=== PATIENT | male | born 1950 | race Caucasian/White ===

== ENCOUNTER 2023-07-07 06:35 | Observation (INO) ==
--- NOTE | 2023-06-02 09:57 | PAT Medication Instructions ---
Medication Instructions Date of Service June 02, 2023 Home Medications bimatoprost 0.01 % eye drops (Lumigan) 1 drp ophthalmic (eye) HS lisinopril 10 mg tablet 15 mg PO QAM simvastatin 10 mg tablet 10 mg PO HS cholecalciferol (vitamin D3) 50 mcg (2,000 unit) tablet (Vitamin D3) 50 mcg PO DAILY multivitamin with minerals-folic acid 12 mcg chewable tablet (Centrum Adults) 1 tab PO QAM naproxen sodium 220 mg tablet (Aleve) 220 mg PO BID PRN Pain timolol maleate 0.5 % eye drops 1 drp ophthalmic (eye) QAM ASK your surgeon for instructions naproxen sodium 220 mg tablet (Aleve) 220 mg PO BID PRN Pain DO NOT take the morning of surgery lisinopril 10 mg tablet 15 mg PO QAM cholecalciferol (vitamin D3) 50 mcg (2,000 unit) tablet (Vitamin D3) 50 mcg PO DAILY multivitamin with minerals-folic acid 12 mcg chewable tablet (Centrum Adults) 1 tab PO QAM Take morning of surgery With a small sip of water, OTHERWISE NOTHING TO EAT OR DRINK AFTER MIDNIGHT: timolol maleate 0.5 % eye drops 1 drp ophthalmic (eye) QAM Take evening before surgery bimatoprost 0.01 % eye drops (Lumigan) 1 drp ophthalmic (eye) HS simvastatin 10 mg tablet 10 mg PO HS Other Notes If you have any questions please call us at [phone] or [phone] or [phone] or [phone]
--- NOTE | 2023-06-09 13:47 | Anesthesiology Consultation ---
Date of Service June 09, 2023 Assessment & Plan (1) Encounter for pre-operative examination: Chart Review Chart Review: Acceptable Risk for Surgery (pending PCP clearance ) and Patient seen in Pre Admission Testing - Awaiting PCP clearance done 06/08/23 ([facility]- Celia Blanca PA-C) (please fax preop testing (PCP awaiting testing prior to final clearance) = fax number [phone] or [phone])) - Patient is NOT an OPJ candidate due to nature of procedure Per PAT appt on 06/09/23, no recent illness/disease exposures, illness related symptoms, or recent illness/disease positive tests. Will leave to surgeon's discretion if preop Covid testing needed Right Total Shoulder reverse arthroplasty 02/13/22= Done under [facility] with Grade 1 view with MAC #4. ETT #8.0. Teaching & Discussion Pre-Anesthesia Teaching/Discussion Notes: Instructed NPO after midnight before surgery,except medications with 15 cc of water. Medication instructions provided according to the [facility] guidelines. History Surgery Operation Date: 07/07/23 09:10 Proposed Procedures p Bilateral Total Knee Arthroplasty - Huseyin Paez DO Height/Weight Height: 5 ft 6 in Weight: 73.7 kg Allergies Allergy/AdvReac Type Severity Reaction Status Date / Time No Known Allergies Allergy Verified 06/01/23 14:27 Medications Home Medications Medication Instructions Recorded Confirmed Last Taken bimatoprost 0.01 % eye drops 1 drp ophthalmic (eye) HS 01/21/22 06/01/23 02/12/22 19:00 ([facility]) lisinopril 10 mg tablet 15 mg PO QAM 01/21/22 06/01/23 02/12/22 06:00 simvastatin 10 mg tablet 10 mg PO HS 01/21/22 06/01/23 02/12/22 20:00 cholecalciferol (vitamin D3) 50 50 mcg PO DAILY 06/01/23 06/01/23 Unknown mcg (2,000 unit) tablet (Vitamin D3) multivitamin with minerals-folic 1 tab PO QAM 06/01/23 06/01/23 Unknown acid 12 mcg chewable tablet (Centrum Adults) naproxen sodium 220 mg tablet 220 mg PO BID PRN Pain 06/01/23 06/01/23 Unknown (Aleve) timolol maleate 0.5 % eye drops 1 drp ophthalmic (eye) QAM 06/01/23 06/01/23 Unknown Past Medical History Medical History (Updated 06/10/23 @ 09:28 by Vanesa King PA-C) Ocular hypertension Follows routinely with eye doctor History of COVID-19 07/2022- home test -mild symptoms, chills; resolved Impaired fasting glucose hx A1c 6.8% > 1 yr ago, with dietary changes reduced to below 6 by patient Hgb A1C 6.1 at [facility] appt on 06/09/23 Hyperlipidemia Hypertension controlled, stable per pt Exercise / Class Metabolic Activity II 4-5 Yardwork/Stairs/Walk up hill (one flight of stairs - no chest pain or SOB- walks 3 miles daily ) Past Family History Family History Other No pertinent family history Past Surgical History Surgical History History of reverse total replacement of right shoulder joint Hx of bilateral cataract extraction 06/2014 right eye --- 07/2014 left eye Hx of colonoscopy History of arthroscopy of left shoulder Hx of amputation index finger - right hand Hx of lumbar discectomy 1976 History of bowel resection [facility] 2016 d/t cancerous polyp - stage 0 - no current issue Past Anesthesia History No Hx of Anesthesia Complications (with exception to remote history of urinary retention in 1970s with lumbar surgery- no issues with subsequent surgeries ) and No Family Hx of Anesthesia Complications History of PONV No Hx of PONV and Hx of Motion Sickness (mild in the past ) Social History Smoking Status: Never smoker Do You Dip or Chew Tobacco: No Hx Alcohol Use: Yes Alcohol type: wine alcohol intake frequency: holidays/special occasions only Hx Substance Use: No substance use type: does not use Review of Systems - Hx of snoring - no hx of sleep study Patient denies chest pain, shortness of breath, dyspnea on exertion, reflux, cough, wheezing, palpitations. No hx of seizures, stroke, NC. No hx of blood clots or blood transfusions Physical Exam Vital Signs VITALS BP 128/74 P 73 TEMP 97.8 SP02 98% RESP 16 Constitutional no acute distress ENMT Mouth: no TMJ clicking Thyromental Distance: > or= 3.5 Finger Breadths (3.5) Mallampati Class: I Missing molar Caps to bottom front teeth and side teeth/molars Neck + limited neck extension (mild) Respiratory normal respiratory effort; no respiratory distress Auscultation: lungs clear to auscultation bilaterally; no wheezes Cardiovascular Rate/Rhythm: regular rate and regular rhythm Heart Sounds: no murmur Vessels: no carotid bruit Musculoskeletal Spine: no pain with cervical ROM Extremities: extremities normal to inspection Psychiatric Orientation: alert Lab Results Anesthesia Preop Results Results Anesthesia Widget: WBC 6.83 K/ul (4.8-10.8) 06/09/23 Hgb 13.3 g/dl (14.0-18.0) L 06/09/23 Hct 40.2 % (42.0-52.0) L 06/09/23 Plt 221 K/uL (130-400) 06/09/23 Na 138 mmol/L (136-145) 06/09/23 K 4.6 mmol/L (3.5-5.1) 06/09/23 Cl 104 mmol/L (98-107) 06/09/23 CO2 28 mmol/L (21-32) 06/09/23 BUN 33 mg/dl (6-23) H 06/09/23 Creat 1.32 mg/dl (0.6-1.4) 06/09/23 Glucose Level 99 mg/dl (70-99(Fasting)) 06/09/23 PT 11.0 Seconds (9.0-12.0) 06/09/23 PTT 25.9 Seconds (21.0-31.0) 06/09/23 INR 1.0 (0.9-1.1) 06/09/23 HA1c 6.1 % (4.5-5.6) H 06/09/23 Urine Color Yellow 06/09/23 Urine Appearance Cloudy (Clear) A 06/09/23 Urine pH 7.5 (4.5-7.5) 06/09/23 Urine Specific [place] 1.018 (1.000-1.030) 06/09/23 Urine Protein Negative (Negative) 06/09/23 Urine Glucose (UA) Negative (Negative) 06/09/23 Urine Ketones Negative (Negative) 06/09/23 Urine Blood Negative (Negative) 06/09/23 Urine Nitrite Negative (Negative) 06/09/23 Urine Bilirubin Negative (Negative) 06/09/23 Urine Urobilinogen Negative (Negative) 06/09/23 Urine Leukocyte Esterase Negative (Negative) 06/09/23 Urine WBC (Auto) 0 /hpf (0-5) 06/09/23 Urine RBC (Auto) 0-4 /hpf (0-4) 06/09/23 Urine Hyaline Casts (Auto) 1-5 /lpf (0-5) 06/09/23 Urine Epithelial Cells (Auto) 5-10 /lpf (0-5) H 06/09/23 Urine Bacteria (Auto) Negative (Negative) 06/09/23 Blood Type O Positive 06/09/23 Antibody Screen NEGATIVE 06/09/23 Testing Electrocardiogram Date: 06/09/23 Findings: + NSR @ (65bpm ) Normal EKG per cardio Chest X-Ray Date: 06/09/23 Findings: + NAD FINDINGS: Right shoulder arthroplasty is incidentally noted. Lung volumes are normal. Lungs are clear. There is no pneumothorax or pleural effusion. Cardiac size is normal. Mediastinal contours are normal. There is no evidence for pulmonary edema.
--- NOTE | 2023-06-10 11:36 | History & Physical Report ---
Date of Service June 10, 2023 date of surgery: 07/07/23 Procedure: Bilateral Total Knee Arthroplasty Surgeon: Huseyin Paez, DO Assessment & Plan (1) Degenerative arthritis of knee, bilateral: Plan: Risk and benefits of procedure were discussed, he wished to proceed with bilateral total knee replacements. We will plan an overnight stay with discharge home with home health physical therapy. We will place him on Eliquis for postoperative DVT prophylaxis x1 month. Follow-up in the office 2 weeks after surgery or sooner if he is having issues, otherwise has no other questions or concerns The risks and benefits have been discussed including, but not limited to, risk of infection, nerve injury, stiffness, loss of motion, failure to improve, etc. Reasonable outcomes and options of treatment were discussed. An explanation of appropriate alternatives to the procedure that may be advantageous were discussed and their risks and benefits, as well as the risks and benefits of not proceeding with treatment. I offered to answer any additional inquiries concerning the treatment involved. All the patient's questions were answered. The patient is agreeable, understanding of the treatment plan and alternatives, and wishes to proceed with the treatment plan. History of Present Illness Chief Complaint: bilateral knee pain Primary Care Provider: Huseyin Hugo Manav is a pleasant 73-year-old male who presented for preop evaluation prior to bilateral total knee replacements. His longstanding history of bilateral knee pain, equal in severity, denies any injuries or trauma. He is undergone previous injections including viscosupplementation with minimal relief, he has also tried oral anti-inflammatories and Tylenol. Rates his current pain as a 6 out of 10. X-rays were reviewed which show advanced generative changes to both of his knees, and after discussing further care he wishes to proceed with surgical intervention Allergies Allergy/AdvReac Type Severity Reaction Status Date / Time No Known Allergies Allergy Verified 06/01/23 14:27 Home Medications Medication Instructions Recorded Confirmed Type bimatoprost 0.01 % eye drops 1 drp ophthalmic (eye) HS 01/21/22 06/01/23 History (Warren) lisinopril 10 mg tablet 15 mg PO QAM 01/21/22 06/01/23 History simvastatin 10 mg tablet 10 mg PO HS 01/21/22 06/01/23 History cholecalciferol (vitamin D3) 50 50 mcg PO DAILY 06/01/23 06/01/23 History mcg (2,000 unit) tablet (Vitamin D3) multivitamin with minerals-folic 1 tab PO QAM 06/01/23 06/01/23 History acid 12 mcg chewable tablet (Centrum Adults) naproxen sodium 220 mg tablet 220 mg PO BID PRN Pain 06/01/23 06/01/23 History (Aleve) timolol maleate 0.5 % eye drops 1 drp ophthalmic (eye) QAM 06/01/23 06/01/23 History Past Med/Surg History Medical History Ocular hypertension Follows routinely with eye doctor History of COVID-19 07/2022- home test -mild symptoms, chills; resolved Impaired fasting glucose hx A1c 6.8% > 1 yr ago, with dietary changes reduced to below 6 by patient Hgb A1C 6.1 at PAT appt on 06/09/23 Hyperlipidemia Hypertension controlled, stable per pt Surgical History History of reverse total replacement of right shoulder joint Hx of bilateral cataract extraction 06/2014 right eye --- 07/2014 left eye Hx of colonoscopy History of arthroscopy of left shoulder Hx of amputation index finger - right hand Hx of lumbar discectomy 1975 History of bowel resection [facility] 2016 d/t cancerous polyp - stage 0 - no current issue Family History Other No pertinent family history Social History Smoking Status: Never smoker Second Hand Exposure: No; Do You Dip or Chew Tobacco: No; Hx Alcohol Use: Yes Alcohol type: wine Hx Substance Use: No Preferred Language: Vietnamese Communication Ability: Effective Basket Person Required: No Beliefs That Will Affect Care: None Current Living Situation: Spouse Feels Safe at Home: Yes Assistive Devices: Glasses Review of Systems Review of Systems: All systems reviewed & are unremarkable except as noted in HPI & below Constitutional: no fever, no chills and no sweats Respiratory: no cough and no dyspnea Cardiovascular: no chest pain, no dyspnea and no orthopnea Gastrointestinal: no abdominal pain, no nausea and no vomiting Musculoskeletal: as per Subjective / HPI Physical Exam Physical Exam: HT: 5ft 6in WT: 73.7kg Constitutional: WD/WN, vitals as above no acute distress Respiratory: normal respiratory effort, lungs clear to auscultation no respiratory distress, no labored breathing and does not use accessory muscles Cardiovascular: RRR, no murmur, no edema Gastrointestinal (Abdomen): normal bowel sounds, soft, nontender, no hepato splenomegaly Musculoskeletal: Bilateral knee Physical exam Overall patient has varus alignment bilaterally, there is no atrophy or ecchymosis noted, +1 suprapatellar effusion in both knees, positive tenderness to both medial and lateral joint lines right knee, more medial sided tenderness to the left knee. negative patellar apprehension, positive crepitation noted to both knees with active ROM. bilateral knees stable to valgus and varus stress, ge negative, posterior drawer negative. Range of motion right knee 0/3/110, left knee 0/3/115. lower extremities are neurovascularly intact, calf soft and non tender, DP pulse +2 bilaterally. Results & Data Results & Data Diagnostic Findings Bilateral Knee X-ray: bilateral knee series confirm advanced degenerative changes bilateral knees, greatest medial compartments and patellofemoral joints, showing joint space narrowing, osteophyte formation and subchondral sclerosis. no acute bony pathology noted.
[~2023-07-07 06:35] MED LIST: ACETAMINOPHEN 500 MG TAB PO SCH; CeleBREX 200 MG CAP PO SCH; FAMOTIDINE 20 MG TAB PO SCH; GABAPENTIN 600 MG DOSE PO SCH; ROPIVACAINE 0.5% 5 MG/ML 30 ML VIAL ONE; ROPIVACAINE 0.5% HCL/PF 150 MG, BUPIVACAINE 0.75% MPF 20 ML, EPINEPHrine 30MG/30ML (OR ... INSTIL SCH; TRANEXAMIC ACID 1,000 MG **IV Intra-op IV SCH; TRANEXAMIC ACID 1,000 MG **IV Pre-op IV SCH; ceFAZolin 2000MG 2,000 MG/15 ML SYR IV SCH
[2023-07-07] MEDS ORDERED: ORTHO JOINT ANESTHETIC ONE (07:10)
[2023-07-07] MEDS: LR 60ML/HR IV SCH ×2 (07:11→07:22)
--- NOTE | 2023-07-07 07:16 | History & Physical Bridge Note ---
Date of Service July 07, 2023 History & Physical Bridge Note I have examined the patient, reviewed the History & Physical and in the interval since the performance of the History & Physical I have noted the following changes of clinical significance: no changes noted
[2023-07-07] MEDS ORDERED: HYDROmorphone INJ 1 MG/ML SYRINGE IV PRN (08:16)
[2023-07-07] MEDS ORDERED: ATROPINE SULFATE 0.1 MG/ML 10ML SYR IV PRN (08:16)
[2023-07-07] MEDS ORDERED: ePHEDrine sulfate 50 MG/ML AMP IV PRN (08:16)
[2023-07-07] MEDS ORDERED: PROMETHAZINE HCL 6.25 MG in SODIUM CHLORIDE 0.9% 50 ML IV PRN (08:16)
[2023-07-07] MEDS ORDERED: ONDANSETRON INJ 2 MG/ML 2 ML VIAL IV PRN ×2 (08:16→13:42)
[2023-07-07] MEDS ORDERED: KETOROLAC 30 MG/ML VIAL IV PRN (08:16)
[2023-07-07] MEDS ORDERED: MIDAZOLAM HCL 1 MG/ML 2ML VIAL ONE (10:10)
[2023-07-07] MEDS ORDERED: fentaNYL citrate PF 100 MCG/2 ML VIAL ONE (10:10)
[2023-07-07] MEDS ORDERED: PROPOFOL IV EMULSION 10 MG/ML 20 ML VIAL IV ONE ×3 (10:10)
[2023-07-07] MEDS ORDERED: ONDANSETRON INJ 2 MG/ML 2 ML VIAL ONE (10:10)
[2023-07-07] MEDS ORDERED: LIDOCAINE 2% 2 ML VIAL/AMP(20MG/ML) INFIL ONE (10:10)
[2023-07-07] MEDS ORDERED: ePHEDrine sulfate 50 MG/5 ML SYR ONE (10:24)
[2023-07-07] MEDS ORDERED: PHENYLEPHRINE 100MCG/ML 10ML SYR IV ONE (10:24)
--- NOTE | 2023-07-07 10:32 | Operative Report ---
Post Operative Report Pre & Post Diagnosis Operation Date: 07/07/23 08:15 Pre-Op Diagnosis: Bilateral Knee Osteoarthritis Post-Op Diagnosis: Bilateral Knee Osteoarthritis I identified the patient and participated in the time-out.: Yes Procedure Operation Date: 07/07/23 08:15 Actual Procedures p Bilateral Total Knee Arthroplasty(Bilateral) right knee sized [employer] yue 2 patient manage femur 6 tibia 4 polyten patella 32 oval left knee size femur 6 tibia 4 polynine patella 32 oval- Huseyin Paez DO Surgeon Huseyin Paez DO Metal Tile Setter Merlin CHAPPELL Estimated Blood Loss 10 (5 ml on each knee ) Findings Consistent with Post-Op Diagnosis Patient presents with bilateral severe tricompartmental DJD varus alignment subchondral sclerosis marginal osteophytes subchondral cystic changes eburnated [id number] with a moderate to large effusion bilaterally Specimens Bone guard Drains Medium bore Hemovac Anesthesia Type MAC Spinal Regional Complications none Disposition Accompanied Patient To Recovery: No Disposition: Recovery Room Indications Patient presents for bilateral total knee arthroplasty after failed attempted conservative management including corticosteroid injection viscosupplementation relative rest activity modification bracing patient been discussed with regard to complications risk factors and is elected proceed forward with bilateral total knee arthroplasty Description of Procedure After proper prepping and draping of the bilateral lower extremities, an anterior midline incision was made over the region of the extensor extensor mechanism of the left knee. After meticulous hemostasis was obtained and maintained in subcutaneous tissues a medial parapatellar incision was made The patella was subluxed lateralward the medial lateral gutter were cleaned from any hypertrophic synovitis and scar tissue of the distal femoral block was placed an d the distal femoral osteotomy cut was made subsequently the chamfers anterior and posterior osteotomy cuts were made utilizing the 4-in-1 block the tibia was subsequently subluxed anteriorward medial and ateral meniscal remnants were excised in their entirety remnants of the anterior and posterior cruciate ligaments were excised in their entirety excellent exposure of the proximal tibia was obtained the tibial osteotomy guide was placed on the proximal tibial osteotomy cut was made once again the knee was irrigated with copious amounts of sterile saline solution the patella was subsequently everted lateralward thickened scar tissue around the patella was removed the patella was subsequently cut utilizing a freehand technique and was drilled prepared for final preparation and placement of patella socially flexion-extension gaps were checked and the equal and symmetric trials were placed to the appropriate femoral and tibial trials with poly-spacer being placed for equal flexion and ex tension gaps and full range of motion including extension to 0 and flexion to 140 the trial components after having been taken to recovery range of motion was subsequently removed meticulous hemostasis was obtained and maintained subsequently a knee block injection of joint cocktail including ropivacaine 0.5% 150 mg. Bupivacaine 0.5% epinephrine 1-200,030 mL's toradol 30 mg dexamethasone 4 mg ketamine 10 mg clonidine 100 micrograms normal saline solution 30 mg was infiltrated into the soft tissues of the posterior knee medial lateral gutters and periosteal synovium special attention was paid to protect neurovascular structures at all times subsequently trial components having been removed the knee was irrigated with sterile saline solution. debris was removed the proximal tibia was subsequently prepared and was made ready for the placement of the tibial component tibial component was also cemented and tamped into position the femoral component was subsequently placed and cemented in the position the patellar component was subsequently cemented in position because hemostasis once again obtained and maintained wound having been thoroughly irrigated with debridement and debridement lavage was performed as well as a medial parapatellar incision closed with #1 Vicryl in interrupted fashion subcutaneous was closed with #2 Vicryl skin was closed with skin clips Next, an anterior midline incision was made over the region of the extensor extensor mechanism of the right knee. After meticulous hemostasis was obtained and maintained in subcutaneous tissues a medial parapatellar incision was made The patella was subluxed lateralward the medial lateral gutter were cleaned from any hypertrophic synovitis and scar tissue of the distal femoral block was placed and the distal femoral osteotomy cut was made subsequently the chamfers anterior and posterior osteotomy cuts were made utilizing the 4-in-1 block the tibia was subsequently subluxed anteriorward medial and ateral meniscal remnants were excised in their entirety remnants of the anterior and posterior cruciate ligaments were excised in their entirety excellent exposure of the proximal tibia was obtained the tibial osteotomy guide was placed on the proximal tibial osteotomy cut was made once again the knee was irrigated with copious amounts of sterile saline solution the patella was subsequently everted lateralward thickened scar tissue around the patella was removed the patella was subsequently cut utilizing a freehand technique and was drilled prepared for final preparation and placement of patella socially flexion-extension gaps were checked and the equal and symmetric trials were placed to the appropriate femoral and tibial trials with poly-spacer being placed for equal flexion and extension gaps and full range of motion including extension to 0 and flexion to 140 the trial components after having been taken to recovery range of motion was subsequently removed meticulous hemostasis was obtained and maintained subsequently a knee block injection of joint cocktail including ropivacaine 0.5% 150 mg. Bupivacaine 0.5% epinephrine 1-200,030 mL's toradol 30 mg dexamethasone 4 mg ketamine 10 mg clonidine 100 micrograms normal saline solution 30 mg was infiltrated into the soft tissues of the posterior knee medial lateral gutters and periosteal synovium special attention was paid to protect neurovascular structures at all times subsequently trial components having been removed the knee was irrigated with sterile saline solution. debris was removed the proximal tibia was subsequently prepared and was made ready for the placement of the tibial component tibial component was also cemented and tamped into position the femoral component was subsequently placed and cemented in the position the patellar component was subsequently cemented in position because hemostasis once again obtained and maintained wound having been thoroughly irrigated with debridement and debridement lavage was performed as well as a medial parapatellar incision closed with #1 Vicryl in interrupted fashion subcutaneous was closed with #2 Vicryl skin was closed with skin clips.. PA-C was necessary for prepping and drapping as well as wound closure of deep fascia Sub cutaneous tissue and skin and was necessary for the case. A sterile compressive dressings were placed, patient was taken to recovery in stable condition of report dictated by Philippe I attest to the content of the Intraoperative Record and any orders documented therein. Any exceptions are noted below.Due to the complex nature of the procedure, the entire surgery was performed with the operational assistance of Merlin CHAPPELL. The assistant professor of communication, under direct supervision, was involved in the actual performance of all aspects of the surgical procedure including hemostasis, tissue retraction and incision, instrument management, patient positioning, and wound closure. I attest to the content of the Intraoperative Record and any orders documented therein. Any exceptions are noted below.
--- NOTE | 2023-07-07 11:58 | XRay Report ---
XR knee LT 1 or 2V routine CLINICAL HISTORY: Postoperative evaluation COMPARISON: None FINDINGS: Alignment of the total left knee arthroplasty is anatomic. There is no periprosthetic frac ture or unexpected radiopaque foreign body. Surgical drain is in place. IMPRESSION: Expected findings following total left knee arthroplasty. ACT 112: Negative or not required by law. Electronically signed by: Madi Cervantes M.D. 07/07/2023 11:56 AM
--- NOTE | 2023-07-07 12:13 | XRay Report ---
XR knee RT 1 or 2V routine HISTORY: 73 years-old Male Surgical Post Op right knee arthroplasty COMPARISON: None TECHNIQUE: 2 views of the right knee FINDINGS: Total joint arthroplasty with patellar resurfacing. Surgical drainage catheter is noted along with ex pected postoperative soft tissue swelling with deep tissue air. No acute fracture or unexpected opaqu e foreign body. IMPRESSION: Total joint arthroplasty with expected postoperative changes. ACT 112: Negative or not required by law. The above report was generated using voice recognition software. It may contain grammatical, syntax o r spelling errors. Electronically signed by: Alfonso Patrick M.D. 07/07/2023 12:12 PM
--- NOTE | 2023-07-07 13:02 | Anesthesiology Progress Note ---
Date of Service July 07, 2023 Anesthesia Post Procedure Vital Signs Vital Signs: Temp Pulse Resp BP Pulse Ox O2 Del Method 07/07/23 13:00 63 13 127/75 99 Room Air 07/07/23 12:45 36.1 C L 79 20 123/70 98 Room Air 07/07/23 12:30 61 14 107/70 96 Room Air 07/07/23 12:15 68 22 130/83 100 Room Air 07/07/23 12:00 67 18 114/69 100 Room Air 07/07/23 11:55 36.2 C L 79 23 122/83 99 Room Air 07/07/23 11:45 65 21 116/78 100 Room Air 07/07/23 11:35 76 15 129/77 100 Room Air 07/07/23 11:25 76 16 116/75 100 Room Air 07/07/23 11:15 73 14 113/91 98 Room Air 07/07/23 11:07 36.2 C L 72 15 115/71 94 Room Air 07/07/23 07:04 36.6 C 74 20 162/85 H 99 Room Air Pain Intensity Right Knee: Pain Intensity: 4 Left Knee: Pain Intensity: 3 Transfer of Care Handoff Completed per policy Notes Mental Status: alert / awake / arousable Patient Amnestic to Procedure: Yes Nausea / Vomiting: adequately controlled Pain: adequately controlled Airway Patency, RR, SpO2: stable & adequate BP & HR: stable & adequate Hydration State: stable & adequate Neuraxial Anesthesia: was administered and sensory block is resolving Anesthetic Complications: no major complications apparent
[2023-07-07] MEDS ORDERED: bisacodyL 10 MG SUPP PR PRN (13:42)
[2023-07-07] MEDS ORDERED: oxyCODONE HCL IR 5 MG TAB (IMMEDIATE RELEASE) PO PRN (13:42)
[2023-07-07] MEDS ORDERED: diphenhydrAMINE 50 MG/ML VIAL IV PRN (13:42)
[2023-07-07] MEDS ORDERED: NALOXONE HCL 0.4 MG/1 ML VIAL/CARP IV PRN (13:42)
[2023-07-07] MEDS ORDERED: MAGNESIUM HYDROXIDE SUSP 30 ML UDC PO PRN (13:42)
[2023-07-07] MEDS ORDERED: HYDROmorphone INJ 0.5 MG/0.5 ML SYR IV PRN (13:42)
[2023-07-07] MEDS: SODIUM CHLORIDE 0.9% 1,000 ML IV SCH ×2 (14:20→21:10)
[2023-07-07] MEDS: ACETAMINOPHEN 500 MG TAB PO SCH ×2 (14:21→21:10)
[2023-07-07] MEDS: ceFAZolin 2000MG 2,000 MG/15 ML SYR IV SCH (17:29)
[2023-07-07] MEDS: BIMATOPROST 0.01% OP SOLN 2.5 ML BTL OP SCH (19:32)
[2023-07-07] MEDS: DOCUSATE SODIUM 100 MG CAP PO SCH (19:33)
[2023-07-07] MEDS: SENNA 8.6 MG TAB PO SCH (19:34)
[2023-07-07] MEDS: SIMVASTATIN 10 MG TAB PO SCH (19:34)
[2023-07-07] MEDS: CeleBREX 200 MG CAP PO SCH (19:34)
[2023-07-08] MEDS: ceFAZolin 2000MG 2,000 MG/15 ML SYR IV SCH (01:42)
[2023-07-08] MEDS: ACETAMINOPHEN 500 MG TAB PO SCH ×3 (05:09→21:19)
[2023-07-08 06:33] LABS: Hematocrit (blood only) 30.8 % (42.0-52.0); Hemoglobin 10.6 g/dl (14.0-18.0); Mean Corpuscular Hemoglobin 32.3 pg (25.0-34.0); Mean Corpuscular Hgb Conc 34.4 g/dL (32.0-36.0); Mean Corpuscular Volume 93.9 fL (80.0-100.0); Mean Platelet Volume 10.2 fL (9.4-12.4); Platelet Count 193 K/uL (130-400); RDW Coefficient of Variation 12.6 % (11.5-14.5); RDW Standard Deviation 43.7 fL (36.4-46.3); Red Blood Count 3.28 M/uL (4.70-6.10); White Blood Count 12.35 K/ul (4.8-10.8)
[2023-07-08 06:59] LABS: Calcium 8.3 mg/dl (8.6-10.3); Creatinine Clr Calc Pharmacy 58.8 ml/min; Est GFR (African American) 83.3 ml/min; Est GFR (Non-African American) 71.9 ml/min; Potassium 4.3 mmol/L (3.5-5.1)
--- NOTE | 2023-07-08 07:28 | Orthopedic Progress Note ---
Date of Service July 08, 2023 Assessment & Plan (1) History of total bilateral knee replacement: Plan: POD #1 s/p Bilateral TKAs pt/ot dvt proph with SHANNAN/SCD/Eliquis plan for d/c home with HHPT Addendum: Kayden stoddard was called on patient this morning. He was participating in therapy and is progressing well. He came back to the room and sat down and began to feel lightheaded and dizzy. He then had a syncopal event. He did lose consciousness for short period of time. He may have struck his head however has no pain or contusion in this area. No increase in knee pain. Able to do straight leg raise bilaterally. Denies any headaches, chest pain, shortness of breath, nausea/vomiting/diarrhea. He is feeling little lightheaded and is diaphoretic. Per patient's he has had 2 or 3 other syncopal events in his life. Medicine did evaluate the patient and did not feel any urgent intervention was required. Will place medicine consult in the event any issues continue. Restart IV fluids. Recheck of H&H this afternoon. Hold discharge today. Admission and Anticipated Discharge Date Admission Date: July 07, 2023 Subjective POD #1 s/p Bilateral TKA Review of Systems Constitutional: no fever, no chills and no sweats Respiratory: no cough and no dyspnea Cardiovascular: no chest pain and no dyspnea Gastrointestinal: no abdominal pain, no nausea and no vomiting Physical Exam Physical Exam: Vital Signs Temp 36.5 C 07/08/23 07:12 Pulse 80 07/08/23 07:12 Resp 16 07/08/23 07:12 BP 129/75 07/08/23 07:12 Pulse Ox 98 07/08/23 07:12 O2 Del Method Room Air 07/08/23 07:12 Intake & Output 07/07/23 07/08/23 07/08/23 18:59 06:59 18:59 Intake Total 1999 3983.333 1982.333 / 3983.33 3 Output Total 1180 / 2405 1225 / 2405 Balance 820 / 1578.333 758.333 / 1578.333 Weight 72.3 kg Intake: IV 100 / 6856.825 8540.333 / 1583.33 3 Lactated Ringe r's 1,000 ml @ 60 0 / 0 mls/hr IV .Q16 H40M [facility] Rx#: [id number] Sodium Chlorid e 0.9% 1,000 ml @ 1483.333 / 1483.33 3 100 mls/hr IV .Q10H [facility] Rx#: [id number] Tranexamic Aci d / 0.7% NaCl 1, 100 / 100 000 mg In 100 ml @ 600 mls/hr IV TODAY@0600 [facility] Rx#:[id number] IV Perioperative 1900 / 1900 Oral 500 / 500 Output: Urine 625 / 1475 850 / 1475 Estimated Blood Loss Drain Output 545 / 920 375 / 920 Left Knee Hemo vac #2 265 / 440 175 / 440 Right Knee Hem ovac #1 280 / 480 200 / 480 Musculoskeletal: Bilateral lower Legs: NVDI, calf SNT, negative dominick sign. DP palpable, able to wiggle toes/ankle movement without difficulty. dressing clean dry and intact. Results & Data Vital Signs (Past 12 Hours) Vital Signs Temp Pulse Resp BP Pulse Ox O2 Del Method 07/08/23 07:12 36.5 C 80 16 129/75 98 Room Air 07/08/23 03:53 36.4 C L 83 18 113/68 98 Room Air 07/07/23 23:32 36.5 C 73 18 114/68 100 Room Air 07/07/23 19:43 36.5 C 78 18 113/72 97 Room Air Laboratory Results Laboratory Results WBC 12.35 K/ul (4.8-10.8) H 07/08/23 05:33 RBC 3.28 M/uL (4.70-6.10) L 07/08/23 05:33 Hgb 10.6 g/dl (14.0-18.0) L 07/08/23 05:33 Hct 30.8 % (42.0-52.0) L 07/08/23 05:33 MCV 93.9 fL (80.0-100.0) 07/08/23 05:33 MCH 32.3 pg (25.0-34.0) 07/08/23 05:33 MCHC 34.4 g/dL (32.0-36.0) 07/08/23 05:33 RDW Std Deviation 43.7 fL (36.4-46.3) 07/08/23 05:33 RDW Coeff of Jennifer 12.6 % (11.5-14.5) 07/08/23 05:33 Plt Count 193 K/uL (130-400) 07/08/23 05:33 MPV 10.2 fL (9.4-12.4) 07/08/23 05:33 Sodium 135 mmol/L (136-145) L 07/08/23 05:33 Potassium 4.3 mmol/L (3.5-5.1) 07/08/23 05:33 Chloride 106 mmol/L (98-107) 07/08/23 05:33 Carbon Dioxide 23 mmol/L (21-32) 07/08/23 05:33 Anion Gap 6 (3-11) 07/08/23 05:33 BUN 25 mg/dl (6-23) H 07/08/23 05:33 Creatinine 1.04 mg/dl (0.6-1.4) 07/08/23 05:33 Est Cr Clr Drug Dosing 58.8 ml/min 07/08/23 05:33 Est GFR ( Amer) 83.3 ml/min 07/08/23 05:33 Est GFR (Non-Af Amer) 71.9 ml/min 07/08/23 05:33 BUN/Creatinine Ratio 24.0 (10-20) H 07/08/23 05:33 Glucose 129 mg/dl (70-99(Fasting)) H 07/08/23 05:33 POC Glucose 128 mg/dl (70-99) H 07/07/23 07:05 Calcium 8.3 mg/dl (8.6-10.3) L 07/08/23 05:33 Impressions Knee X-Ray 07/07/23 11:10 XR knee RT 1 or 2V routine HISTORY: 73 years-old Male Surgical Post Op right knee arthroplasty COMPARISON: None TECHNIQUE: 2 views of the right knee FINDINGS: Total joint arthroplasty with patellar resurfacing. Surgical drainage catheter is noted along with expected postoperative soft tissue swelling with deep tissue air. No acute fracture or unexpected opaque foreign body. IMPRESSION: Total joint arthroplasty with expected postoperative changes. ACT 112: Negative or not required by law. The above report was generated using voice recognition software. It may contain grammatical, syntax or spelling errors. Electronically signed by: Alfonso Patrick M.D. 07/07/2023 12:12 PM
[2023-07-08] MEDS: CeleBREX 200 MG CAP PO SCH ×2 (07:53→21:19)
[2023-07-08] MEDS: CHOLECALCIFEROL 1,000 UNITS 25 MCG TAB PO SCH (07:53)
[2023-07-08] MEDS: MULTIVITAMIN TAB PO SCH (07:53)
[2023-07-08] MEDS: DOCUSATE SODIUM 100 MG CAP PO SCH ×2 (07:53→21:19)
[2023-07-08] MEDS: APIXABAN 2.5 MG TAB PO SCH ×2 (07:53→21:18)
[2023-07-08] MEDS: TIMOLOL MALEATE 0.5% OP SOLN 5 ML BTL OP SCH (07:54)
[2023-07-08] MEDS ORDERED: lisinopril 5 MG TAB PO SCH (09:00)
[2023-07-08] MEDS ORDERED: SODIUM CHLORIDE 0.9% 1,000 ML IV SCH (10:00)
[2023-07-08] MEDS ORDERED: SODIUM CHLORIDE 0.9% 500 ML IV ONE (10:17)
[2023-07-08] MEDS ORDERED: SODIUM CHLORIDE 0.9% 500 ML IV SCH (10:30)
--- NOTE | 2023-07-08 16:29 | Hospitalist Consultation ---
Date of Consultation July 08, 2023 Assessment & Plan (1) History of total bilateral knee replacement: underwent total bilateral knee replacements with Dr. Reinaldo Paez on 07/07/2023 Apixaban chosen for DVT prevention (2) Syncope: this is likely orthostatic syncope encouraged by BASIL inhibitor use in the postoperative state of likely mild hypovolemia and acute blood loss anemia. patient has no neurological changes no visible signs of injury will give a 500 bolus of saline and additional 500 at 125 an hour. Patient with hemoglobin checked in the evening to look for worsening acute blood loss anemia. Supportive care at this time. Certainly going to hold his lisinopril at this time History of Present Illness Attending Physician: Huseyin Paez, History of Present Illness 73 M s/p B/l total knee replacements who had syncope just at the end of Physical Therapy, did strike head, did not have and pain or headache of visible trauma Pt returned to usual state, does not recall events, no pain to head, did not injure knees, Hemovac in place never passed out before, has had surgery before, did receive am lisinopril 15 mg Allergies Allergy/AdvReac Type Severity Reaction Status Date / Time No Known Allergies Allergy Verified 07/07/23 07:07 Home Medications Medication Instructions Recorded Confirmed Type bimatoprost 0.01 % eye drops 1 drp ophthalmic (eye) HS 01/21/22 07/07/23 History (Warren) lisinopril 10 mg tablet 15 mg PO QAM 01/21/22 07/07/23 History simvastatin 10 mg tablet 10 mg PO HS 01/21/22 07/07/23 History cholecalciferol (vitamin D3) 50 50 mcg PO DAILY 06/01/23 07/07/23 History mcg (2,000 unit) tablet (Vitamin D3) multivitamin with minerals-folic 1 tab PO QAM 06/01/23 07/07/23 History acid 12 mcg chewable tablet (Centrum Adults) naproxen sodium 220 mg tablet 220 mg PO BID PRN Pain 06/01/23 07/07/23 History (Aleve) timolol maleate 0.5 % eye drops 1 drp ophthalmic (eye) QAM 06/01/23 07/07/23 History acetaminophen 500 mg tablet 1,000 mg (2 x 500 mg) PO Q8 21 07/08/23 Rx (Tylenol Extra Strength) days #126 tabs apixaban 2.5 mg tablet (Eliquis) 2.5 mg PO BID 30 days #60 tabs 07/08/23 Rx cefadroxil 500 mg capsule 500 mg PO BID 14 days #28 caps 07/08/23 Rx docusate sodium 100 mg capsule 100 mg PO BID #20 caps 07/08/23 Rx oxycodone 5 mg tablet 5 - 10 mg (1 - 2 x 5 mg) PO Q6H 07/08/23 Rx PRN pain #30 tabs Patient History Medical History Ocular hypertension Follows routinely with eye doctor History of COVID-19 07/2022- home test -mild symptoms, chills; resolved Impaired fasting glucose hx A1c 6.8% > 1 yr ago, with dietary changes reduced to below 6 by patient Hgb A1C 6.1 at [facility] appt on 06/09/23 Hyperlipidemia Hypertension controlled, stable per pt Surgical History History of reverse total replacement of right shoulder joint Hx of bilateral cataract extraction 06/2014 right eye --- 07/2014 left eye Hx of colonoscopy History of arthroscopy of left shoulder Hx of amputation index finger - right hand Hx of lumbar discectomy 1976 History of bowel resection [facility] 2016 d/t cancerous polyp - stage 0 - no current issue Family History Other No pertinent family history Social History Smoking Status: Never smoker Second Hand Exposure: No; Do You Dip or Chew Tobacco: No; Tobacco Cessation Education Requested by Patient: No Hx Alcohol Use: Yes Alcohol type: wine Hx Substance Use: No Preferred Language: Indonesian Communication Ability: Effective Pen Tester Required: No Beliefs That Will Affect Care: None Current Living Situation: Spouse Other Information That Helps Us Care for You: No Feels Safe at Home: Yes Safety Concerns: Feels Safe At This Time Assistive Devices: Walker Assistive Devices Comment: reading glasses Physical Exam Physical Exam: the patient appeared well nourished and normally developed. Vital signs as documented. Currently blood pressure is supported not significantly low Head exam is normocephalic atraumatic there is no palpable area of hematoma bruising or tenderness to his posterior scalp Neck is without JVD, thyromegaly, or carotid bruits. Lungs are clear to auscultation, no focal loss of breath sounds Cardiac exam, Rhythm is regular.. No murmurs, rubs or gallops. Abdominal exam reveals normal bowel sounds, soft non tender, no masses Extremities are bilateral Hemovacs in place with dressings and Basil wrap's on his lower legs Neurologic exam is alert and oriented, sensation intact distally to his feet Results & Data Results & Data Vital Signs (Past 12 Hours) Vital Signs Temp Pulse Resp BP Pulse Ox O2 Del Method 07/08/23 15:38 97.7 F 73 14 118/74 100 Room Air 07/08/23 11:36 99.0 F 65 15 114/69 100 Room Air 07/08/23 11:00 65 15 114/69 100 Room Air 07/08/23 09:25 84 12 100 Room Air 07/08/23 07:12 97.7 F 80 16 129/75 98 Room Air Laboratory Results reviewed CBC reviewed chemistry PG Care Time/CCT Total # of Minutes Spent Total Time Spent with Patient: Total time spent is greater than 50% in coordination of care (as documented) at patient's floor/unit and/or counseling patient: Coding Level of Care Code 16604 IN/OBS CONSULT LVL 3,45M Diagnoses History of total bilateral knee replacement Z96.653 Syncope R55
[2023-07-08 16:39] LABS: Hematocrit (blood only) 29.2 % (42.0-52.0); Hemoglobin 10.1 g/dl (14.0-18.0)
[2023-07-08] MEDS: BIMATOPROST 0.01% OP SOLN 2.5 ML BTL OP SCH (21:18)
[2023-07-08] MEDS: SIMVASTATIN 10 MG TAB PO SCH (21:19)
[2023-07-08] MEDS: SENNA 8.6 MG TAB PO SCH (21:19)
[2023-07-09] MEDS: ACETAMINOPHEN 500 MG TAB PO SCH (06:02)
--- NOTE | 2023-07-09 07:17 | Orthopedic Progress Note ---
Date of Service July 09, 2023 Assessment & Plan (1) History of total bilateral knee replacement: Plan: POD #2 s/p Bilateral TKAs pt/ot dvt proph with SHANNAN/SCD/Eliquis plan for d/c home with HHPT Code purple called yesterday after PT, he denies any reoccurrence. states feel well this morning, denies LH, dizzy. will see how he performs today with PT, if doing well will d/c today Admission and Anticipated Discharge Date Admission Date: July 07, 2023 Subjective POD #2 s/p Bilateral TKA Review of Systems Constitutional: no fever, no chills and no sweats Respiratory: no cough and no dyspnea Cardiovascular: no chest pain and no dyspnea Gastrointestinal: no abdominal pain, no nausea and no vomiting Physical Exam Physical Exam: Vital Signs Temp 36.5 C 07/08/23 19:56 Pulse 87 07/08/23 19:56 Resp 20 07/08/23 19:56 BP 118/69 07/08/23 19:56 Pulse Ox 100 07/08/23 19:56 O2 Del Method Room Air 07/08/23 19:56 Intake & Output 07/08/23 07/09/23 07/09/23 18:59 06:59 18:59 Intake Total 1000 / 1000 Output Total 500 / 2651 2151 / 2651 Balance 500 / -1651 -2151 / -1651 Intake: IV 1000 / 1000 Sodium Chlorid e 0.9% 500 ml @ 500 / 500 999 mls/hr IV .Q31M [facility] Rx#: [id number] Sodium Chlorid e 0.9% 500 ml @ 500 / 500 125 mls/hr IV .Q4H [facility] Rx#: [id number] Output: Urine 300 / 2450 2150 / 2450 Drain Output 200 / 200 Left Knee Hemo vac #2 50 / 50 Right Knee Hem ovac #1 150 / 150 # Bowel Movement s / Other: # Unmeasured Voi ds 1 Musculoskeletal: Bilateral lower legs: NVDI, calf SNT, negative dominick sign. DP palpable, able to wiggle toes/ankle movement without difficulty. dressing clean dry and intact. Results & Data Vital Signs (Past 12 Hours) Vital Signs Temp Pulse Resp BP Pulse Ox O2 Del Method 07/08/23 19:56 36.5 C 87 20 118/69 100 Room Air
[2023-07-09] MEDS: APIXABAN 2.5 MG TAB PO SCH (07:47)
[2023-07-09] MEDS: CeleBREX 200 MG CAP PO SCH (07:47)
[2023-07-09] MEDS: TIMOLOL MALEATE 0.5% OP SOLN 5 ML BTL OP SCH (07:47)
[2023-07-09] MEDS: DOCUSATE SODIUM 100 MG CAP PO SCH (07:47)
[2023-07-09] MEDS: CHOLECALCIFEROL 1,000 UNITS 25 MCG TAB PO SCH (07:47)
[2023-07-09] MEDS: MULTIVITAMIN TAB PO SCH (07:47)
--- NOTE | 2023-07-10 16:29 | Discharge Summary ---
Date of Service July 10, 2023 Admission HPI Per Admitting Provider Aelx is a pleasant 73-year-old male who presented for preop evaluation prior to bilateral total knee replacements. His longstanding history of bilateral knee pain, equal in severity, denies any injuries or trauma. He is undergone previous injections including viscosupplementation with minimal relief, he has also tried oral anti-inflammatories and Tylenol. Rates his current pain as a 6 out of 10. X-rays were reviewed which show advanced generative changes to both of his knees, and after discussing further care he wishes to proceed with surgical intervention Admission Exam Per Admitting Provider Physical Exam: HT: 5ft 6in WT: 73.7kg Constitutional: WD/WN, vitals as above no acute distress Respiratory: normal respiratory effort, lungs clear to auscultation no respiratory distress, no labored breathing and does not use accessory muscles Cardiovascular: RRR, no murmur, no edema Gastrointestinal (Abdomen): normal bowel sounds, soft, nontender, no hepatosplenomegaly Musculoskeletal: Bilateral knee Physical exam Overall patient has varus alignment bilaterally, there is no atrophy or ecchymosis noted, +1 suprapatellar effusion in both knees, positive tenderness to both medial and lateral joint lines right knee, more medial sided tenderness to the left knee. negative patellar apprehension, positive crepitation noted to both knees with active ROM. bilateral knees stable to valgus and varus stress, ge negative, posterior drawer negative. Range of motion right knee 0/3/110, left knee 0/3/115. lower extremities are neurovascularly intact, calf soft and non tender, DP pulse +2 bilaterally. Principal Diagnosis Djd Bilateral Knees Discharge Data Allergies Allergy/AdvReac Type Severity Reaction Status Date / Time No Known Allergies Allergy Verified 07/07/23 07:07 Consultations 07/08/23 09:37 Consult Hospitalist Routine Procedures Performed Operation Date: 07/07/23 08:15 Actual Procedures p Bilateral Total Knee Arthroplasty(Bilateral) - Huseyin Neri DO Ordered Studies 07/07/23 05:00 US - OR guided needle placemen Routine Hospital Course (1) History of total bilateral knee replacement: Patient: ALEX MCCORD Admit Date: 07/07/23 MR#: [id number] Att Phy: Huseyin Neri,D.O. Acct ID: [id number] Johanna Phy: Huseyin Hugo M.D. Date: 1950 Fam Phy: Age: 73 Location: 3E Sex: M Room/Bed: E[facility] cc: ~ *NOTICE TO RECEIVING CONSTITUTION PARTY/AGENCY This information is strictly Confidential and protected under [place] law. [place] law prohibits you from making any further disclosure of this information unless further disclosure is expressly permitted by the written consent of the person to whom it pertains or is authorized by law. A general authorization for the release of medical or other information is not sufficient for this purpose. Hospital accepts no responsibility if the information is made available to any other person, INCLUDING THE PATIENT. Date of Service July 08, 2023 Assessment & Plan (1) History of total bilateral knee replacement: Plan: POD #1 s/p Bilateral TKAs pt/ot dvt proph with SHANNAN/SCD/Eliquis plan for d/c home with HHPT Addendum: Kayden arlyn was called on patient this morning. He was participating in therapy and is progressing well. He came back to the room and sat down and began to feel lightheaded and dizzy. He then had a syncopal event. He did lose consciousness for short period of time. He may have struck his head however has no pain or contusion in this area. No increase in knee pain. Able to do straight leg raise bilaterally. Denies any headaches, chest pain, shortness of breath, nausea/vomiting/diarrhea. He is feeling little lightheaded and is diaphoretic. Per patient's he has had 2 or 3 other syncopal events in his life. Medicine did evaluate the patient and did not feel any urgent intervention was required. Will place medicine consult in the event any issues c ontinue. Restart IV fluids. Recheck of H&H this afternoon. Hold discharge today. Admission and Anticipated Discharge Date Admission Date: July 07, 2023 Subjective POD #1 s/p Bilateral TKA Review of Systems Constitutional: no fever, no chills and no sweats Respiratory: no cough and no dyspnea Cardiovascular: no chest pain and no dyspnea Gastrointestinal: no abdominal pain, no nausea and no vomiting Physical Exam Physical Exam: Vital Signs Temp 36.5 C 07/08/23 07:12 Pulse 80 07/08/23 07:12 Resp 16 07/08/23 07:12 BP 129/75 07/08/23 07:12 Pulse Ox 98 07/08/23 07:12 O2 Del Method Room Air 07/08/23 07:12 Intake & Output 07/07/23 07/08/23 07/08/23 18:59 06:59 18:59 Intake Total 1999 / 3983.333 1983.333 / 3983.33 3 Output Total 1180 / 2405 1225 / 2405 Balance 820 / 1578.333 758.333 / 1578.333 Weight 72.3 kg Intake: IV 100 / 6484.099 0426.333 / 1583.33 3 Lactated Ringe r's 1,000 ml @ 60 0 / 0 mls/hr IV .Q16 H40M [facility] Rx#: [id number] Sodium Chlorid e 0.9% 1,000 ml @ 1483.333 / 1483.33 3 100 mls/hr IV .Q10H [facility] Rx#: [id number] Tranexamic Aci d / 0.7% NaCl 1, 100 / 100 000 mg In 100 ml @ 600 mls/hr IV TODAY@0600 [facility] Rx#:[id number] IV Perioperative 1900 / 1900 Oral 500 / 500 Output: Urine 625 / 1475 850 / 1475 Estimated Blood Loss 10 10 Drain Output 545 / 920 375 / 920 Left Knee Hemo vac #2 265 / 440 175 / 440 Right Knee Hem ovac #1 280 / 480 200 / 480 Musculoskeletal: Bilateral lower Legs: NVDI, calf SNT, negative dominick sign. DP palpable, able to wiggle toes/ankle movement without difficulty. dressing clean dry and intact. Results & Data Vital Signs (Past 12 Hours) Vital Signs Temp Pulse Resp BP Pulse Ox O2 Del Method 07/08/23 07:12 36.5 C 80 16 129/75 98 Room Air 07/08/23 03:53 36.4 C L 83 18 113/68 98 Room Air 07/07/23 23:32 36.5 C 73 18 114/68 100 Room Air 07/07/23 19:43 36.5 C 78 18 113/72 97 Room Air Laboratory Results Laboratory Results WBC 12.35 K/ul (4.8-10.8) H 07/08/23 05:33 RBC 3.28 M/uL (4.70-6.10) L 07/08/23 05:33 Hgb 10.6 g/dl (14.0-18.0) L 07/08/23 05:33 Hct 30.8 % (42.0-52.0) L 07/08/23 05:33 MCV 93.9 fL (80.0-100.0) 07/08/23 05:33 MCH 32.3 pg (25.0-34.0) 07/08/23 05:33 MCHC 34.4 g/dL (32.0-36.0) 07/08/23 05:33 RDW Std Deviation 43.7 fL (36.4-46.3) 07/08/23 05:33 RDW Coeff of Jennifer 12.6 % (11.5-14.5) 07/08/23 05:33 Plt Count 193 K/uL (130-400) 07/08/23 05:33 MPV 10.2 fL (9.4-12.4) 07/08/23 05:33 Sodium 135 mmol/L (136-145) L 07/08/23 05:33 Potassium 4.3 mmol/L (3.5-5.1) 07/08/23 05:33 Chloride 106 mmol/L (98-107) 07/08/23 05:33 Carbon Dioxide 23 mmol/L (21-32) 07/08/23 05:33 Anion Gap 6 (3-11) 07/08/23 05:33 BUN 25 mg/dl (6-23) H 07/08/23 05:33 Creatinine 1.04 mg/dl (0.6-1.4) 07/08/23 05:33 Est Cr Clr Drug Dosing 58.8 ml/min 07/08/23 05:33 Est GFR ( Amer) 83.3 ml/min 07/08/23 05:33 Est GFR (Non-Af Amer) 71.9 ml/min 07/08/23 05:33 BUN/Creatinine Ratio 24.0 (10-20) H 07/08/23 05:33 Glucose 129 mg/dl (70-99(Fasting)) H 07/08/23 05:33 POC Glucose 128 mg/dl (70-99) H 07/07/23 07:05 Calcium 8.3 mg/dl (8.6-10.3) L 07/08/23 05:33 Impressions Knee X-Ray 07/07/23 11:10 XR knee RT 1 or 2V routine HISTORY: 73 years-old Male Surgical Post Op right knee arthroplasty COMPARISON: None TECHNIQUE: 2 views of the right knee FINDINGS: Total joint arthroplasty with patellar resurfacing. Surgical drainage catheter is noted along with expected postoperative soft tissue swelling with deep tissue air. No acute fracture or unexpected opaque foreign body. IMPRESSION: Total joint arthroplasty with expected postoperative changes. ACT 112: Negative or not required by law. The above report was generated using voice recognition software. It may contain grammatical, syntax or spelling errors. Electronically signed by: Alfonso Patrick M.D. 07/07/2023 12:12 PM Signed By: <Electronically signed by Franky Rivas MD> 07/08/23 1343 <Electronically signed by Ar Rodrigez PA-C> 07/08/23 0730 <Electronically signed by Arias Glass PA-C> 07/08/23 0950 Date of Service July 09, 2023 Assessment & Plan (1) History of total bilateral knee replacement: Plan: POD #2 s/p Bilateral TKAs pt/ot dvt proph with SHANNAN/SCD/Eliquis plan for d/c home with HHPT Code arlyn called yesterday after PT, he denies any reoccurrence. states feel well this morning, denies LH, dizzy. will see how he performs today with PT, if doing well will d/c today Admission and Anticipated Discharge Date Admission Date: July 07, 2023 Subjective POD #2 s/p Bilateral TKA Review of Systems Constitutional: no fever, no chills and no sweats Respiratory: no cough and no dyspnea Cardiovascular: no chest pain and no dyspnea Gastrointestinal: no abdominal pain, no nausea and no vomiting Bilateral lower legs: NVDI, calf SNT, negative dominick sign. DP palpable, able to wiggle toes/ankle movement without difficulty. dressing clean dry and intact. Plan 10 Total Time Total Time Spent Total Time Spent (In Minutes): 10 Discharge Plan Discharge Items Patient Disposition: Home - Home Health Services Reason For Visit: Bilateral Knee Osteoarthritis Discharge Diagnosis: Bilateral Knee Osteoarthritis Activity: Per Instructions section Non-emergency contact: Surgeon Call non-emergency contact if: you have any medication questions, your pain is not controlled, your temperature is above 101.5, your wound has increased redness and your wound has increased drainage Follow-up/Referrals: Huseyin Neri DO [Surgeon] - (Follow up with Dr Neri or his PA in 2 weeks from the day of your surgery for your first post operative visit.) Huseyin Hugo M.D. [Primary Care Provider] - Diet: Regular Addtl Attending Provider Instructions: ACTIVITY RECOMMENDATIONS: SELF CARE INSTRUCTIONS AFTER TOTAL KNEE REPLACEMENT A. You may need to continue a physical therapy program after discharge from the hospital. There are several options available to you. Your doctor will assist you in selecting the best one for you. 1. An out-patient facility 2 to 3 times a week for therapy or home therapy. 2. Continue working on all exercises taught to you in the hospital. Your goals should be to increase bending of your knee to 90 degrees and beyond and to fully straighten your knee. B. You may progress at your own pace from walking with a walker or crutches to a cane; then to no assistive devices. C. Make walking a part of your daily routine. Be up as much as comfortable with rest periods throughout the day. Rest with leg elevation is very important. Use the ice wrap frequently for the first 3-4 weeks. D. There are no restrictions on activities. You may ride in a car, shop, participate in ceramic tiler and all social activities. E. Wear the long elastic stockings (SHANNAN hose) 20 hours a day for 2 weeks after surgery. They can be removed several times a day for laundering and for a bath. F. You may shower, no tub baths until cleared by your doctor. SPECIAL CARE INSTRUCTIONS: VERY IMPORTANT TO READ AND REVIEW A. There are a few signs you need to watch for after you are home. Call [facility] if you notice any of the followin. Increased severe knee pain. Some pain is expected especially when you exercise. 2. Increased swelling in your leg or knee; pain or swelling of the calf muscle in either lower leg. 3. Any fluid drainage from the incision. 4. Shortness of breath or chest pain. B. Please call [facility] at if you have any concerns or questions about your operation or recovery. The doctor or his nurse will return your call promptly. C. You must take antibiotics before dental work, bladder, bowel or other surgery. Your doctor will provide you with a permanent care to carry describing this precaution. IMPORTANT: * REMEMBER TO TAKE ASPIRIN, 81 MG, TWICE DAILY FOR 4 WEEKS UNLESS OTHERWISE DIRECTED. THIS IS YOUR BLOOD THINNER. * HIGH RISK PATIENTS MAY BE PRESCRIBED A STRONGER BLOOD THINNER. THIS WILL BE PROVIDED AT DISCHARGE. * CALL IF INCREASED PAIN, REDNESS, DRAINAGE OR FEVER GREATER THAT 101. * WEAR SHANNAN HOSE 20 HOURS PER DAY FOR 2 WEEKS. * Elias Dressing - This is a large suction dressing covering your incision. This will help pull any excess drainage from the wound and allow your incision to heal properly. You may shower with this if you can keep the unit outside of the shower. If any bleeding or leakage is noted please call your doctor's office. This will remain on your incision for 7 days and then should be removed. This can be done yourself or by the home nursing staff if applicable. The entire unit is disposable once removed. Once removed, keep incision clean and dry. If redness or drainage is noted, please call your surgeon. . FOLLOW UP VISIT: If appointment is not already scheduled: Please call [facility] to make a follow-up appointment for 2 weeks after your surgery at . Pending Studies at Discharge: No Stand-Alone Forms: My [facility] de[facility]a, Smoking Cessation Medications and DC Order Prescriptions: New Eliquis 2.5 mg Tablet 2.5 mg PO BID 30 Days Qty: 60 0RF acetaminophen [Tylenol Extra Strength] 500 mg Tablet 1,000 mg PO Q8 21 Days Qty: 126 0RF cefadroxil 500 mg capsule 500 mg PO BID 14 Days Qty: 28 0RF docusate sodium 100 mg Capsule 100 mg PO BID Qty: 20 0RF oxycodone 5 mg tablet 5 - 10 mg PO Q6H PRN (Reason: pain) Qty: 30 0RF Rx Instructions: ongoing therapy, supervising dr feng neri. max 6 tabs in 24 hours Continued timolol maleate 0.5 % Drops 1 drp OPHTHALMIC (EYE) QAM Centrum Adults 12 mcg Tablet,Chewable 1 tab PO QAM cholecalciferol (vitamin D3) [Vitamin D3] 50 mcg (2,000 unit) Tablet 50 mcg PO DAILY simvastatin 10 mg Tablet 10 mg PO HS lisinopril 10 mg Tablet 15 mg PO QAM Lumigan 0.01 % Drops 1 drp ophthalmic (eye) HS Discontinued naproxen sodium [Aleve] 220 mg Tablet 220 mg PO BID PRN (Reason: Pain) Krames/Other Patient Handouts: Oxycodone Oral Tablet, Causes of Syncope, Knee Replacement Total Dc Admission Data Admit Date/Time: 07/07/23 11:10 Attending Provider: Huseyin Neri Admit Provider: Huseyin Neri Primary Care Provider: Huseyin Hugo Other Providers: Huseyin Castellon Other Interventions: Discharge Summary Assessment (RN) Last Done: 07/09/23 10:43
== END 2023-07-09 14:07 | disposition home health service (06) ==
LOC: 3E 06:35 → ASU 06:35
DX: Z79.899 Other long term (current) drug therapy; Z79.01 Long term (current) use of anticoagulants; R55 Syncope and collapse; M17.0 Bilateral primary osteoarthritis of knee